=== PATIENT | female | born 1985 | race Two or more races ===

== ENCOUNTER 2025-09-05 06:00 | Day surgery (SDC) | payer OTHER ==
[2025-08-31 11:47] VITALS: BP 138/85
[~2025-09-05] VITALS: Ht 154.9 cm; Wt 66.7 kg
[~2025-09-05 06:00] MED LIST: ACID REDUCER20 M1 PO; ATIVAN0.5 M1 PO; DRIZALMA SPRINK60 MG PO; HUMIRA40 MG/0.2; PAMELOR10 M1 PO; PEPCID AC10 MG PO; RESTORIL30 MG PO
[2025-09-05] MEDS ORDERED: CEFOXITIN SODIUM 2,000 MG VIAL IV ONE (06:25)
[2025-09-05] MEDS ORDERED: BUPIVACAINE HCL/MPF 0.5% 30ML VIAL ONE (07:04)
[2025-09-05] MEDS ORDERED: ACETAMINOPHEN 500 MG GEL..CAP PO ONE (10:28)
[2025-09-05] MEDS ORDERED: KETOROLAC TROMETHAMINE 30 MG VIAL ONE (10:29)
[2025-09-05] MEDS ORDERED: KETOROLAC TROMETHAMINE 30 MG VIAL IV ONE (10:40)
[2025-09-05] MEDS ORDERED: PROTONIX40 MG PO (11:16)
[2025-09-05] MEDS ORDERED: TRAM1TAB98 PO (11:17)
== END 2025-09-05 12:35 | disposition home or self-care (01) ==
LOC: CIR.AMB 06:00
PROVIDERS: ATTEND Surgery
DX: K81.1 Chronic cholecystitis (principal); Z88.5 Allergy status to narcotic agent